=== PATIENT | female | born 1935 | race Caucasian/White ===

== ENCOUNTER → 2016-08-28 | Outpatient (CLI) | payer OTHER, MEDICARE | LOC: FIMAGING 15:36 | PROVIDERS: ATTEND Surgery | DX: Z12.31 Encounter for screening mammogram for malignant neoplasm of breast (principal); Z85.3 Personal history of malignant neoplasm of breast; Z80.3 Family history of malignant neoplasm of breast | CPT/HCPCS: G0202 ==

== ENCOUNTER → 2016-10-20 | Outpatient (CLI) | payer OTHER, MEDICARE | LOC: FIMAGING 13:24 | PROVIDERS: ATTEND Internal Medicine | DX: Z13.820 Encounter for screening for osteoporosis (principal); M85.80 Other specified disorders of bone density and structure, unspecified site; Z78.0 Asymptomatic menopausal state; Z85.3 Personal history of malignant neoplasm of breast ==

== ENCOUNTER → 2017-09-01 | Outpatient (CLI) | payer OTHER, MEDICARE | LOC: FIMAGING 11:42 | PROVIDERS: ATTEND Internal Medicine | DX: Z12.31 Encounter for screening mammogram for malignant neoplasm of breast (principal) ==

== ENCOUNTER → 2018-05-28 | Outpatient (CLI) | payer OTHER, MEDICARE | LOC: BMCIMAGING 13:40 | PROVIDERS: ATTEND Internal Medicine | DX: M79.89 Other specified soft tissue disorders (principal); M19.042 Primary osteoarthritis, left hand ==

== ENCOUNTER → 2018-09-02 | Outpatient (CLI) | payer OTHER, MEDICARE | LOC: FIMAGING 09:01 | PROVIDERS: ATTEND Internal Medicine | DX: Z12.31 Encounter for screening mammogram for malignant neoplasm of breast (principal); Z85.3 Personal history of malignant neoplasm of breast ==